=== PATIENT | male | born 1950 | race Caucasian/White ===

== ENCOUNTER 2020-07-24 11:12 | Outpatient (CLI) | payer MEDICARE, OTHER ==
--- NOTE | 2020-07-24 12:11 | ULT ---
EXAM: US Thyroid STANDARD PROVIDED CLINICAL HISTORY: Thyroid goiter. Patient feels as if the thyroid gland is getting larger. COMPARISON: None FINDINGS: The thyroid gland is diffusely enlarged and very heterogeneous in appearance. The right lobe of the t hyroid gland measures 9.7 cm x 5.6 cm x 4 cm the left lobe measuring 4.3 cm x 9.5 cm x 3.7 cm. Multiple echogenic structures with posterior shadowing are seen scattered throughout the right lobe o f the thyroid gland compatible with calcifications. A discrete measurable nodule is not seen in the right lobe of the thyroid gland. There is a anechoic structure seen within the left lateral aspect of the isthmus measuring 0.7 cm com patible with a cyst. There is a hypoechoic nodule measuring 1.8 cm with surrounding calcification seen within the superior pole left lobe of the thyroid gland. IMPRESSION: 1. Diffuse enlargement and heterogeneity of the thyroid gland. 2. TI RADS level 4 nodule left lobe of the thyroid gland-moderately suspicious nodule. Fine-needle as piration is recommended for nodules greater than 1.5 cm in size. However, due to surrounding peripheral rim of calcifications this would likely prevent fine-needle aspiration of the nodule.
[2020-07-24 15:04] LABS: Thyroid Stimulating Hormone 0.0592 uIU/mL (0.35-4.94)
[2020-07-25 15:11] LABS: EliA Thy New Method **** NEW METHOD ****; Thyroid Peroxidase IgG Ab Less than 4.0 IU/mL (<25 Normal)
== END 2020-07-24 11:13 | disposition home or self-care (01) ==
LOC: SCSULT 11:12
PROVIDERS: ATTEND Internal Medicine Endocrinology, Diabetes & Metabolism
DX: E04.2 Nontoxic multinodular goiter (principal)
CPT/HCPCS: 36415; 76536; 84439; 84443; 86376